=== PATIENT | female | born 1980 | race Caucasian/White ===

== ENCOUNTER 2019-10-02 08:50 | Emergency (ER) | payer SELFPAY ==
[~2019-10-02] VITALS: Ht 165.1 cm; Wt 52.2 kg
--- NOTE | 2019-10-02 10:35 | Emergency Department Note ---
History of Present Illnes History of Present Illness Chief Complaint: General Medicine Complaints History of Present Illness This is a 39 year old female Chief Complaint Comment PATIENT IN FROM HOME WITH COMPLAINTS OF INFECTED BLEMISH ON HER CHIN AND FOREHEAD, AND SHORTNESS OF BREATH X 7 MONTHS. PATIENT RATES PAIN 10/10. PATIENT APPEARS ANXIOUS . Historian: Patient Arrival Mode: Car Onset (how long ago): day(s) (2) Location: chin Quality: sharp Radiation: Denies non-radiation, Denies back, Denies neck, Denies extremity, Denies abdomen, Denies periumbilical, Denies flank, Denies proximal, Denies distal, Denies other Severity: moderate Onset quality: gradual Duration (how long): day(s) (3) Timing of current episode: constant Progression: unchanged Chronicity: new Context: Denies recent illness, Denies recent surgery, Denies recent immobilization, Denies recent travel, Denies trauma/injury, Denies new m edications, Denies hx of DVT/PE, Denies non-compliance w/ medications, Denies other Relieving factors: none Exacerbating factors: none Associated symptoms: Reports denies other symptoms Treatments prior to arrival: none Past Medical/Family History Physician Review I have reviewed the patient's past medical and family history. Any updates have been documented here. Past Medical History Recent Fever: No Clinical Suspicion of Infectio: Yes New/Unexplained Change in Ment: No Past Medical History: Anemia, Anxiety Past Surgical History: T&A Other Surgery: LEFT FINGER SURGERY BREAST AUGMENTATION Review of Systems Review of Systems Constitutional: Reports no symptoms EENTM: Reports no symptoms Cardiovascular: Reports no symptoms Respiratory: Reports no symptoms Gastrointestinal: Reports no symptoms Genitourinary: Reports no symptoms Musculoskeletal: Reports no symptoms Integumentary: Reports as per HPI Neurological: Reports no symptoms Psychological: Reports no symptoms Endocrine: Reports no symptoms Hematological/Lymphatic: Reports no symptoms Physical Exam Related Data Allergies: Coded Allergies: No Known Allergies (Unverified , 10/02/19) Triage Vital Signs Vital Signs Date Time Temp Pulse Resp B/P (MAP) Pulse Ox O2 Delivery O2 Flow Rate FiO2 10/02/19 09:03 97.7 116 20 126/68 100 Room Air Vital signs reviewed: Yes Physical Exam CONSTITUTIONAL Constitutional: Present well-developed, Present well-nourished HENT HENT: Present normocephalic, Present atraumatic, Present oropharynx clear/moist, Present nose normal HENT L/R: Present left ext ear normal, Present right ext ear normal EYES Eyes: Reports PERRL, Reports conjunctivae normal NECK Neck: Present ROM normal PULMONARY Pulmonary: Present effort normal, Present breath sounds normal CARDIOVASCULAR Cardiovascular: Present regular rhythm, Present heart sounds normal, Present capillary refill normal, Present normal rate GASTROINTESTINAL Abdominal: Present soft, Present nontender, Present bowel sounds normal GENITOURINARY Genitourinary: Present exam deferred SKIN Skin: Present warm, Present dry, Present erythema MUSCULOSKELETAL Musculoskeletal: Present ROM normal NEUROLOGICAL Neurological: Present alert, Present oriented x 3, Present no gross motor or sensory deficits PSYCHOLOGICAL Psychological: Present mood/affect normal, Present judgement normal Results Imaging Imaging results reviewed: Yes Assessment & Plan Medical Decision Making MDM cellulitis abscess Reassessment Reassessment time: 10:34 Reassessment same Assessment & Plan Final Impression: (1) Cellulitis (2) Abscess (3) Dyspnea Depart Disposition: HOME, SELF-CARE Last Vital Signs Date Time Temp Pulse Resp B/P (MAP) Pulse Ox O2 Delivery O2 Flow Rate FiO2 10/02/19 09:03 97.7 116 20 126/68 100 Room Air ANTONY YUAN MD Oct 02, 2019 10:35
[2019-10-02] MEDS ORDERED: IBUPROFEN 600 MG TAB PO STA (10:42)
--- NOTE | 2019-10-02 11:39 | Diagnostic Imaging Report ---
EXAMINATION: CHEST SINGLE (PORTABLE) INDICATION: COUGH COMPARISON: None FINDINGS: AP view TUBES and LINES: None. LUNGS/PLEURA: Lungs are well inflated. There is no evidence of pneumonia or pulmonary edema.. There is no pleural effusion or pneumothorax. HEART AND MEDIASTINUM: The cardiomediastinal silhouette is unremarkable. BONES AND SOFT TISSUES: No acute osseous lesion. Soft tissues are unremarkable. UPPER ABDOMEN: No free air under the diaphragm. IMPRESSION: No acute thoracic abnormality. Signed by: Jhonny Grewal MD on 10/02/2019 11:36 AM
[2019-10-02] MEDS ORDERED: LEXAPRO20 MG PO (14:34)
[2019-10-02] MEDS ORDERED: SINGULAIR10 MG PO (14:34)
[2019-10-02] MEDS ORDERED: LOSARTAN POTASS25 MG (14:34)
== END 2019-10-02 12:00 | disposition home or self-care (01) ==
LOC: ER 09:14
DX: L02.91 Cutaneous abscess, unspecified (principal); L03.211 Cellulitis of face; R06.00 Dyspnea, unspecified; F41.9 Anxiety disorder, unspecified; D64.9 Anemia, unspecified
CPT/HCPCS: 71045; 99283

== ENCOUNTER 2021-10-17 21:03 | Emergency (ER) | payer SELFPAY ==
[~2021-10-17] VITALS: Ht 165.1 cm; Wt 52.2 kg
[~2021-10-17 21:03] MED LIST: LEXAPRO20 MG PO; LOSARTAN POTASS25 MG; SINGULAIR10 MG PO
[2021-10-17] MEDS ORDERED: METOPROLOL TARTRATE INJ 1 MG/ML VIAL IV STA (21:13)
[2021-10-17] MEDS ORDERED: DILTIAZEM HCL 5 MG/ML 5 ML VIAL IV STA (21:13)
[2021-10-17] MEDS: DIGOXIN INJ 0.25 MG/ML 2 ML AMP IV STA ×2 (21:38→22:30)
[2021-10-17 21:39] LABS: AMPHETAMINES SCREEN,URINE POSITIVE (NEGATIVE); BENZODIAZEPINES SCREEN,URINE NEGATIVE (NEGATIVE); PHENCYCLIDINE SCREEN,URINE NEGATIVE (NEGATIVE)
[2021-10-17 21:44] LABS: BASOPHILS % 0.2 % (0.0-1.0); EOSINOPHILS # (AUTO) 0.1 (0.0-0.4); EOSINOPHILS % 2.7 % (0.0-6.0); HEMATOCRIT 37.9 % (34.2-44.1); HEMOGLOBIN 10.8 g/dL (12.0-16.0); LYMPHOCYTES % 21.7 % (18.0-39.1); MEAN CORPUSCULAR HEMOGLOBIN 18.9 pg (28-32); MEAN CORPUSCULAR HGB CONC 28.5 g/dL (31-35); MEAN CORPUSCULAR VOLUME 66.4 fL (81-99); MONOCYTES # (AUTO) 0.6 (0.2-0.8); MONOCYTES % 13.2 % (4.4-11.3); NEUTROPHILS # (AUTO) 2.8 (2.1-6.9); PLATELET COUNT 345 x10e3/uL (140-360); RED BLOOD COUNT 5.71 x10e6/uL (3.6-5.1); RED CELL DISTRIBUTION WIDTH 19.2 % (11.7-14.4)
[2021-10-17 21:53] LABS: ALANINE AMINOTRANSFERASE 34 IU/L (0-55); ALBUMIN 3.9 g/dL (3.5-5.0); ALBUMIN/GLOBULIN RATIO 1.1 (0.8-2.0); ALKALINE PHOSPHATASE 86 IU/L (40-150); BLOOD UREA NITROGEN 19 mg/dL (7-26); BUN/CREATININE RATIO 28 (6-25); CALCIUM 9.6 mg/dL (8.4-10.2); CARBON DIOXIDE 26 mmol/L (22-29); CHLORIDE 105 mmol/L (98-107); CREATINE KINASE 33 IU/L (29-168); CREATININE, SERUM 0.67 mg/dL (0.57-1.11); GLUCOSE 101 mg/dL (74-118); SODIUM 139 mmol/L (136-145)
[2021-10-17] MEDS ORDERED: IOPAMIDOL 370 MG/ML 100 ML INFUS..BTL INJ ONE (22:15)
[2021-10-17 22:25] LABS: CREATINE KINASE MB < 0.10 ng/mL (0-5.0)
[2021-10-17] MEDS ORDERED: LOPRESSOR25 MG PO (22:58)
[2021-10-17] MEDS ORDERED: ALBENDAZOLE200 MG PO (22:58)
[2021-10-17 23:12] VITALS: BP 140/99
== END 2021-10-17 23:15 | disposition home or self-care (01) ==
LOC: ER 21:10
DX: R00.2 Palpitations (principal); F15.10 Other stimulant abuse, uncomplicated; B80 Enterobiasis; R94.31 Abnormal electrocardiogram [ECG] [EKG]; D64.9 Anemia, unspecified; F41.9 Anxiety disorder, unspecified
CPT/HCPCS: 36415; 71260; 80053; 80307; 81025; 82550; 82553; 83690; 83880; 84484; 85025; 85379; 93005; 99284; J1160; Q9967